=== PATIENT | female | born 1970 ===

== ENCOUNTER 2023-08-14 05:35 | Day surgery (SDC) | payer OTHER ==
[~2023-08-14 05:35] MED LIST: BUSPAR; COZAAR25 MG PO; CRESTOR5 MG PO; CYMBALTA20 MG PO; METHOTREXA25 MG/1 M6 IJ; MOBIC7.5 MG PO; REMERON; RESTORIL15 M1 PO; SINGULAIR10 MG PO
== END 2023-08-14 14:05 | disposition home or self-care (01) ==
LOC: CIR.AMB 05:35
PROVIDERS: ATTEND Colon & Rectal Surgery
DX: K60.0 Acute anal fissure (principal); K92.1 Melena; K64.2 Third degree hemorrhoids; I10 Essential (primary) hypertension; Z20.822 Contact with and (suspected) exposure to COVID-19